=== PATIENT | female | born 1940 | race African-American/Black ===

== ENCOUNTER 2017-12-08 17:33 | Inpatient (IN) ==
[2017-12-08] MEDS ORDERED: Sod Chloride 0.9% Inj 1,000 ML IV.SIG ONE ×2 (18:16)
[2017-12-08 18:48] LABS: Baso % (Auto) 0.2 % (0.0-2.0); Hematocrit 39.1 % (35.0-46.0); Hemoglobin 12.6 gm/dL (11.6-15.3); Lymph # (Auto) 0.8 th/mm3 (1.0-4.8); Lymph % (Auto) 5.6 % (9.0-44.0); Mean Corpuscular HGB Conc 32.3 % (32.0-36.0); Mean Corpuscular Hemoglobin 27.9 pg (27.0-34.0); Mean Corpuscular Volume 86.5 fL (80.0-100.0); Mean Platelet Volume 9.6 fL (7.0-11.0); Mono # (Auto) 1.4 th/mm3 (0.0-0.9); Mono % (Auto) 9.7 % (0.0-8.0); Neut # (Auto) 11.9 th/mm3 (1.8-7.7); Neut % (Auto) 84.5 % (16.0-70.0); Platelet Count 165 th/mm3 (150-450); Red Blood Count 4.52 mil/mm3 (4.00-5.30); White Blood Count 14.1 th/mm3 (4.0-11.0)
[2017-12-08] MEDS ORDERED: Acetaminophen 325 MG Tablet PO ONE (18:55)
--- NOTE | 2017-12-08 19:04 | XR ---
EXAM DATE: 12/08/2017 6:46 PM EDT AGE/SEX: 77 years / Female INDICATIONS: Shortness of breath. Fever. CLINICAL DATA: This is the patient's initial encounter. Patient reports that signs and symptoms have been present for 2 days and indicates a pain score of 0/10. MEDICAL/SURGICAL HISTORY: . Hepatitis C . Cholecystectomy. Cesarian section. Interstim COMPARISON: No prior exams available for comparison. FINDINGS: The lungs are clear without infiltrate, nodule, or mass. There is no appreciable pleural effusion fo r technique. Heart and mediastinum are unremarkable. CONCLUSION: No acute cardiopulmonary disease. Electronically signed by: Margarette Garcia MD 12/08/2017 7:02 PM EDT
--- NOTE | 2017-12-08 19:08 | ED ---
HPI General Chief Complaint: Medical Clearance Stated Complaint: blood sugar increasing per pt Time Seen by Provider: 12/08/17 18:43 Source: patient and RN notes reviewed Mode of arrival: ambulatory Limitations: no limitations History of Present Illness HPI Narrative: 77-year-old female presents to the emergency department for evaluation of hyperglycemia and fever. She states she has a chronic cough. However, she started with fever last night. She also reports sore throat, chest congestion, body aches. She states her blood sugar was up in the 400s. Fever on arrival was 102.5. She does report history type 2 diabetes and is on Lantus. Patient denies any urinary symptoms. Reports history of hepatitis C, cirrhosis, spinal stenosis. Moderate severity. MD complaint: fever Onset (ago): day(s) (1) Maximum Temperature: 102.5 F Temperature Source: oral Associated symptoms: chills, nasal congestion, sore throat and cough Related Data Home Medications Medication Instructions Recorded Confirmed insulin glargine [Lantus Solostar 60 unit SUB-Q HS 12/08/17 12/08/17 U-100 Insulin] Allergies Allergy/AdvReac Type Severity Reaction Status Date / Time cephalexin Allergy Severe HIVES Verified 12/08/17 18:37 Review of Systems ROS: all other systems reviewed are negative PMFSH Medical History Medical History Cirrhosis (Acute) Diabetes (Acute) Hepatitis C (Acute) Spinal stenosis (Acute) Surgical History Surgical History History of cholecystectomy (Acute) Hx of section (Acute) Social History Social History Substance History: No History of Abuse Smoking Status: Former smoker How Often Do You Have a Drink Containing Alcohol: Never Recent Travel in [facility] within the Last 8 Weeks: No Recent Out of Country Travel within the Last 8 Weeks: No Immunization History Tetanus Immunization: Unsure Exam Narrative Exam Narrative: GENERAL: Well-nourished, well-developed female patient, afebrile. SKIN: Focused skin assessment warm/dry. HEAD: Normocephalic. Atraumatic. EYES: No scleral icterus. No injection or drainage. NECK: Supple, trachea midline. No JVD or lymphadenopathy. CARDIOVASCULAR: Regular rate and rhythm without murmurs, gallops, or rubs. RESPIRATORY: Breath sounds equal bilaterally. No accessory muscle use. Lung sounds are clear to auscultation. GASTROINTESTINAL: Abdomen soft, non-tender, nondistended. MUSCULOSKELETAL: No cyanosis, or edema. BACK: Nontender without obvious deformity. No CVA tenderness. Course Initial Documented Vital Signs Temperature 102.5 F H 12/08/17 17:58 Pulse Rate 93 H 12/08/17 17:58 Respiratory Rate 18 12/08/17 17:58 Blood Pressure 131/62 12/08/17 17:58 Pulse Oximetry 95 12/08/17 17:58 Last Documented Vital Signs Temperature 98.5 F 12/08/17 20:23 Pulse Rate 86 12/08/17 20:23 Respiratory Rate 22 12/08/17 20:23 Blood Pressure 140/63 12/08/17 20:23 Pulse Oximetry 97 12/08/17 20:23 Medical Decision Making MDM Narrative Medical decision making narrative: 77-year-old female presents to the emergency department for evaluation of hyperglycemia and fever. Fever is 102.5 on arrival. IV access is obtained. CBC, CMP, magnesium, lactic acid, blood cultures 2, UA, beta hydroxybutyrate,, blood cultures 2, chest x-ray are ordered and pending. Patient is given 2 L normal saline IV bolus. CBC shows leukocytosis of 14.1. CMP shows hyponatremia 124, hyperkalemia 5.5, BUN 30, creatinine 1.66, hyperglycemia 397. Magnesium is 1.5. Lactic acid is 2.2. Beta hydroxybutyrate is 0.53. UA shows large occult blood, positive nitrate, moderate leukocyte esterase, 133 WBC, occasional WBC clumps. Chest x- ray shows no acute cardiopulmonary disease. Influenza is negative. Patient is given Levaquin 250 mg IV for UTI, sepsis. She also be admitted for hyponatremia. Dr. Salter accepted admission. Medical Screen Exam Complete: Yes Emergency Medical Condition: Yes Differential Diagnosis Differential Diagnosis: Pneumonia versus influenza versus UTI versus sepsis versus hyperglycemia versus DKA Medical Records Medical records reviewed: Yes I reviewed the patient's medical records. Lab Data Result diagrams: 12/08/17 18:32 12/08/17 18:32 Lab Results 12/08/17 12/08/17 12/08/17 Range/Units 18:32 18:32 18:32 WBC 14.1 H (4.0-11.0) th/mm3 RBC 4.52 (4.00-5.30) mil/mm3 Hgb 12.6 (11.6-15.3) gm/dL Hct 39.1 (35.0-46.0) % MCV 86.5 (80.0-100.0) fL MCH 27.9 (27.0-34.0) pg MCHC 32.3 (32.0-36.0) % RDW 13.0 (11.6-17.2) % Plt Count 165 (150-450) th/mm3 MPV 9.6 (7.0-11.0) fL Neut % (Auto) 84.5 H (16.0-70.0) % Lymph % (Auto) 5.6 L (9.0-44.0) % Pender % (Auto) 9.7 H (0.0-8.0) % Eos % (Auto) 0.0 (0.0-4.0) % Baso % (Auto) 0.2 (0.0-2.0) % Neut # (Auto) 11.9 H (1.8-7.7) th/mm3 Lymph # (Auto) 0.8 L (1.0-4.8) th/mm3 Pender # (Auto) 1.4 H (0.0-0.9) th/mm3 Eos # (Auto) 0.0 (0.0-0.4) th/mm3 Baso # (Auto) 0.0 (0.0-0.2) th/mm3 WBC Differential . Differential Comment Auto diff final Sodium 124 L* (136-145) meq/L Potassium 5.5 H (3.5-5.1) meq/L Chloride 92 L (98-107) meq/L Carbon Dioxide 23.7 (21.0-32.0) meq/L Anion Gap 8 (5-15) meq/L BUN 30 H (7-18) mg/dL Creatinine 1.66 H (0.50-1.00) mg/dL Estimated GFR 36 L (>89) mL/min POC Glucose (68-110) mg/dl Random Glucose 397 H (74-106) mg/dL Lactic Acid 2.2 H (0.4-2.0) mmol/L Calcium 9.3 (8.5-10.1) mg/dL Magnesium 1.5 (1.5-2.5) mg/dL Total Bilirubin 1.4 H (0.2-1.0) mg/dL AST 51 H (15-37) U/L ALT 19 (10-53) U/L Alkaline Phosphatase 127 H (45-117) U/L Total Protein 9.1 H (6.4-8.2) g/dL Albumin 3.3 L (3.4-5.0) g/dL Beta-Hydroxybutyric Acd 0.53 H (0.00-0.39) mmol/L Urine Color (Yellw/Straw) Urine Clarity (Clear) Urine pH (5.0-8.5) Ur Specific [place] (1.002-1.035) Urine Protein (Neg-Trace) mg/dL Urine Glucose (UA) (Negative) mg/dL Urine Ketones (Negative) mg/dL Urine Occult Blood (Negative) Urine Nitrate (Negative) Urine Bilirubin (Negative) Urine Urobilinogen (Less than 2) mg/dL Ur Leukocyte Esterase (Negative) Urine RBC (0-3) /hpf Urine WBC (0-5) /hpf Urine WBC Clumps (None) Ur Squamous Epith Cells (0-5) /hpf Urine Bacteria (None) /hpf Urine Mucus (Occasional) /lpf Micro UA Comment Ur Microscopic Review Urine Culture Comments 12/08/17 12/08/17 Range/Units 19:22 20:23 WBC (4.0-11.0) th/mm3 RBC (4.00-5.30) mil/mm3 Hgb (11.6-15.3) gm/dL Hct (35.0-46.0) % MCV (80.0-100.0) fL MCH (27.0-34.0) pg MCHC (32.0-36.0) % RDW (11.6-17.2) % Plt Count (150-450) th/mm3 MPV (7.0-11.0) fL Neut % (Auto) (16.0-70.0) % Lymph % (Auto) (9.0-44.0) % Pender % (Auto) (0.0-8.0) % Eos % (Auto) (0.0-4.0) % Baso % (Auto) (0.0-2.0) % Neut # (Auto) (1.8-7.7) th/mm3 Lymph # (Auto) (1.0-4.8) th/mm3 Pender # (Auto) (0.0-0.9) th/mm3 Eos # (Auto) (0.0-0.4) th/mm3 Baso # (Auto) (0.0-0.2) th/mm3 WBC Differential Differential Comment Sodium (136-145) meq/L Potassium (3.5-5.1) meq/L Chloride (98-107) meq/L Carbon Dioxide (21.0-32.0) meq/L Anion Gap (5-15) meq/L BUN (7-18) mg/dL Creatinine (0.50-1.00) mg/dL Estimated GFR (>89) mL/min POC Glucose 325 H (68-110) mg/dl Random Glucose (74-106) mg/dL Lactic Acid (0.4-2.0) mmol/L Calcium (8.5-10.1) mg/dL Magnesium (1.5-2.5) mg/dL Total Bilirubin (0.2-1.0) mg/dL AST (15-37) U/L ALT (10-53) U/L Alkaline Phosphatase (45-117) U/L Total Protein (6.4-8.2) g/dL Albumin (3.4-5.0) g/dL Beta-Hydroxybutyric Acd (0.00-0.39) mmol/L Urine Color Yellow (Yellw/Straw) Urine Clarity Cloudy H (Clear) Urine pH 5.0 (5.0-8.5) Ur Specific [place] 1.014 (1.002-1.035) Urine Protein 100 H (Neg-Trace) mg/dL Urine Glucose (UA) 500 or greater (Negative) mg/dL Urine Ketones Negative (Negative) mg/dL Urine Occult Blood Large H (Negative) Urine Nitrate Positive H (Negative) Urine Bilirubin Negative (Negative) Urine Urobilinogen Less than 2 (Less than 2) mg/dL Ur Leukocyte Esterase Moderate H (Negative) Urine RBC 20 H (0-3) /hpf Urine WBC 133 H (0-5) /hpf Urine WBC Clumps Occasional H (None) Ur Squamous Epith Cells <1 (0-5) /hpf Urine Bacteria Moderate H (None) /hpf Urine Mucus Few H (Occasional) /lpf Micro UA Comment Culture indicated Ur Microscopic Review Not Reportable Urine Culture Comments Culture indicated Imaging Data Radiologist's impression: Chest X-Ray 12/08/17 18:16 CONCLUSION: No acute cardiopulmonary disease. Discharge Plan Discharge Disposition Patient Disposition: 30 Still Patient Discharge Details Diagnosis: Acute UTI, Sepsis, Acute hyponatremia Physicians Team ED Provider: Dandy Leon ED Midlevel Provider: Fawn Davalos Primary Care Provider: Brenna Severino Attending Provider: Karen Salter Status ED Status: Admitted Patient
[2017-12-08 19:15] LABS: Alanine Aminotransferase 19 U/L (10-53); Albumin 3.3 g/dL (3.4-5.0); Alkaline Phosphatase 127 U/L (45-117); Anion Gap 8 meq/L (5-15); Aspartate Aminotransferase 51 U/L (15-37); Beta Hydroxybutyric Acid 0.53 mmol/L (0.00-0.39); Blood Urea Nitrogen 30 mg/dL (7-18); Calcium 9.3 mg/dL (8.5-10.1); Carbon Dioxide 23.7 meq/L (21.0-32.0); Chloride 92 meq/L (98-107); Glomerular Filtration Rate 36 mL/min (>89); Glucose,Random 397 mg/dL (74-106); Magnesium 1.5 mg/dL (1.5-2.5); Total Protein 9.1 g/dL (6.4-8.2)
[2017-12-08 19:16] LABS: Potassium 5.5 meq/L (3.5-5.1)
[2017-12-08 19:17] LABS: Sodium 124 meq/L (136-145)
[2017-12-08 19:46] LABS: Bacteria,Urine Moderate /hpf; Bilirubin,Urine Negative (Negative); Clarity,Urine Cloudy (Clear); Color,Urine Yellow (Yellw/Straw); Glucose,Urine (UA) 500 or Greater mg/dL (Negative); Leukocyte Esterase,Urine Moderate (Negative); Mucus,Urine Few /lpf (Occasional); Nitrite,Urine Positive (Negative); Specific Gravity,Urine 1.014 (1.002-1.035); Squamous Epithelial Cell,Urine <1 /hpf (0-5)
[2017-12-08] MEDS ORDERED: Levofloxacin 250 mg Premix Inj 250 MG/50 ML PIGGYBACK IV.SIG ONE (20:24)
[2017-12-08] MEDS ORDERED: Bisacodyl 10 MG Supp RECTAL PRN (20:54)
[2017-12-08] MEDS ORDERED: Dextrose 50% in Water 50 ML Vial IV.PUSH PRN (20:54)
--- NOTE | 2017-12-08 20:56 | P.HPIM ---
History of Present Illness Primary Care Physician: Brenna Severino MD History of Present Illness: This is a 77-year-old female with a PMH of HTN, Hepatitis C, Cirrhosis and DM who presented to ER with complaints of fever and elevated BS x1 day. States she 's had non-productive cough, nasal congestion and sore throat since yesterday, last night w/ fever of 102. Denies chest pain, SOB or sick contacts. Notes BS have been 400s despite taking Insulin. On arrival, BP 131/62, HR 93, O2 sat 95 % on RA, Temp 102.5. WBC 14.1. Na 124. K+ 5.5. Creatinine 1.66, previously 1.07 on 04/03/2008. Lactic Acid 2.2. BS 397. UA positive for significant UTI. CXR with no acute findings. S/p Blood Cultures, IVF and Levaquin IV in ER - Diagnosis (1) Sepsis (2) UTI (urinary tract infection) (3) DELFINO (acute kidney injury) (4) DM (diabetes mellitus) (5) Hepatitis C Inpatient Certification: I certify that the inpatient services were ordered in accordance with Medicare regulations governing the order. This includes certification that hospital inpatient services are reasonable and necessary and in the case of services not specified as inpatient-only under 42 CFR 419.22(n), that they are appropriately provided as inpatient services in accordance to with the 2-midnight benchmark under 43 CFR 412.3(e) Estimated Total Length of Stay (Days): 2 Plans for Post Hospital Care: Not yet determined Review of Systems PAST FAMILY HISTORY: Reviewed, positive for DM. All other systems reviewed negative except as stated in H[facility] - History History Provided By: Patient - Medical History Medical History: Medical History (Last Updated 12/08/17 @ 18:16 by Litzy Sanchez RN) Cirrhosis Diabetes Hepatitis C Spinal stenosis - Surgical History Surgical History: Surgical History (Last Updated 12/08/17 @ 18:16 by Litzy Sanchez RN) History of cholecystectomy Hx of section - Tobacco History Smoking Status: Former smoker - Alcohol History How Often Do You Have a Drink Containing Alcohol: Never - Substance Use History Substance History: No History of Abuse - Travel History Recent Travel in the [place] Within the Last 8 Weeks: No Recent Travel Out of the Country Within the Last 8 Weeks: No - Immunization History Tetanus Immunization: Unsure Medications and Allergies Active Medications: Active Medications Levofloxacin/Dextrose (Levaquin 250 Mg Premix Inj) 250 mg in 50 mls @ 50 mls/ hr IV.SIG ONCE ONE Stop: 12/08/17 21:23 Last Admin: 12/08/17 20:38 Dose: 50 mls/hr Sodium Chloride (Ns Flush) 2 ml IV.FLUSH PRN PRN PRN Reason: FLUSH AFTER USING IV ACCESS Last Admin: 12/08/17 18:34 Dose: 2 ml Allergies Allergy/AdvReac Type Severity Reaction Status Date / Time cephalexin Allergy Severe HIVES Verified 12/08/17 18:37 Home Medications Medication Instructions Recorded Confirmed Type insulin glargine [Lantus Solostar 60 unit SUB-Q HS 12/08/17 12/08/17 History U-100 Insulin] Exam Vital signs: Vital Signs 12/08/17 17:58 12/08/17 19:11 12/08/17 19:12 Temperature 102.5 F H Pulse Rate 93 H 90 90 Respiratory Rate 18 22 Blood Pressure 131/62 175/76 H Pulse Oximetry 95 96 12/08/17 20:23 Temperature 98.5 F Pulse Rate 86 Respiratory Rate 22 Blood Pressure 140/63 Pulse Oximetry 97 Intake & Output 12/08/17 12/08/17 12/09/17 06:59 18:59 06:59 Intake Total 1999 Balance 1999 Weight 84.822 kg Intake: IV 1999 NS Inj 1,000 ML @ Wide Open IV. 1999 SIG BOLUS ONE Rx#:[id number] Narrative: PE: GENERAL: Pleasant elderly black female in no acute distress. SKIN: Focused skin assessment warm and dry. HEENT: PERRLA, EOMI. No scleral icterus or conjunctival pallor. No lid lag or facial droop. CARDIOVASCULAR: Regular rate and rhythm. No obvious murmurs to auscultation. No chest tenderness to palpation. RESPIRATORY: No obvious rhonchi or wheezing. Clear to auscultation. Breath sounds equal bilaterally. GASTROINTESTINAL: Abdomen soft, non-tender, nondistended. BS normal. MUSCULOSKELETAL: Extremities without clubbing, cyanosis, or edema. No obvious deformities. NEUROLOGICAL: Awake, alert and oriented x4. No focal neurologic deficits. Moving both upper and lower extremities spontaneously. PSYCHIATRIC: Appropriate mood and affect. Insight and judgment normal. Results - Labs CBC & Chem 7: 12/08/17 18:32 12/08/17 18:32 Labs: Short CBC 12/08/17 Range/Units 18:32 WBC 14.1 H (4.0-11.0) th/mm3 Hgb 12.6 (11.6-15.3) gm/dL Hct 39.1 (35.0-46.0) % Plt Count 165 (150-450) th/mm3 BMP 12/08/17 18:32 Sodium 124 L* Potassium 5.5 H Chloride 92 L Carbon Dioxide 23.7 BUN 30 H Creatinine 1.66 H Calcium 9.3 Liver Function 12/08/17 Range/Units 18:32 Total Bilirubin 1.4 H (0.2-1.0) mg/dL AST 51 H (15-37) U/L ALT 19 (10-53) U/L Alkaline Phosphatase 127 H (45-117) U/L Albumin 3.3 L (3.4-5.0) g/dL Urine 12/08/17 Range/Units 19:22 Urine Color Yellow (Yellw/Straw) Urine Clarity Cloudy H (Clear) Urine pH 5.0 (5.0-8.5) Ur Specific [place] 1.014 (1.002-1.035) Urine Protein 100 H (Neg-Trace) mg/dL Urine Glucose (UA) 500 or greater (Negative) mg/dL - Imaging Impressions Chest X-Ray 12/08/17 18:16 CONCLUSION: No acute cardiopulmonary disease. Caprini VTE Risk Assessment Caprini VTE Risk Assessment: No/Low Risk (score <= 1) Caprini Risk Assessment Model: Point Value = 1 Point Value = 2 Point Value = 3 Point Value = 5 Age 41-60 Minor surgery BMI > 25 kg/m2 Swollen legs Varicose veins or History of unexplained or recurrent spontaneous Oral contraceptives or hormone replacement Sepsis (< 1 month) Serious lung disease, including pneumonia (< 1 month) Abnormal pulmonary function Acute myocardial infarction Congestive heart failure (< 1 month) History of inflammatory bowel disease Medical patient at bed rest Age 61-74 Arthroscopic surgery Major open surgery (> 45 min) Laparoscopic surgery (> 45 min) Malignancy Confined to bed (> 72 hours) Immobilizing plaster cast Central venous access Age >= 75 History of VTE Family history of VTE Factor V Leiden Prothrombin [id number] Lupus anticoagulant Anticardiolipin antibodies Elevated serum homocysteine Heparin-induced thrombocytopenia Other congenital or acquired thrombophilia Stroke (< 1 month) Elective arthroplasty Hip, pelvis, or leg fracture Acute spinal cord injury (< 1 month) Prophylaxis Regimen: Total Risk Factor Score Risk Level Prophylaxis Regimen 0-1 Low Early ambulation 2 Moderate Order ONE of the following: *Sequential Compression Device (SCD) *Heparin 5000 units SQ BID 3-4 Higher Order ONE of the following medications: *Heparin 5000 units SQ TID *Enoxaparin/Lovenox 40 mg SQ daily (WT < 150 kg, CrCl > 30 mL/min) *Enoxaparin/Lovenox 30 mg SQ daily (WT < 150 kg, CrCl > 10-29 mL/min) *Enoxaparin/Lovenox 30 mg SQ BID (WT < 150 kg, CrCl > 30 mL/min) AND/OR *Sequential Compression Device (SCD) 5 or more Highest Order ONE of the following medications: *Heparin 5000 units SQ TID (Preferred with Epidurals) *Enoxaparin/Lovenox 40 mg SQ daily (WT < 150 kg, CrCl > 30 mL/min) *Enoxaparin/Lovenox 30 mg SQ daily (WT < 150 kg, CrCl > 10-29 mL/min) *Enoxaparin/Lovenox 30 mg SQ BID (WT < 150 kg, CrCl > 30 mL/min) AND *Sequential Compression Device (SCD) Assessment and Plan - Assessment (1) Sepsis Code(s): A41.9 - Sepsis, unspecified organism Status: Acute (2) UTI (urinary tract infection) Code(s): N39.0 - Urinary tract infection, site not specified Status: Acute (3) DELFINO (acute kidney injury) Code(s): N17.9 - Acute kidney failure, unspecified Status: Acute (4) DM (diabetes mellitus) Code(s): E11.9 - Type 2 diabetes mellitus without complications Status: Acute (5) Hepatitis C Code(s): B19.20 - Unspecified viral hepatitis C without hepatic coma Status: Acute - Plan A/P: 1. Sepsis: Temp 102.5, HR 93, WBC 14, Source-UTI, s/p Blood Cultures and IV Levaquin, follow up cultures, continue IVF for hydration, repeat Lactic Acid. 2. UTI: U/a w/ significant UTI, follow up urine cultures, continue IV Levaquin , IVF for hydration, monitor I/O. 3. DELFINO: Creatinine 1.66, previously 1.07 on 04/03/08, IVF as above-caution w/ h /o Cirrhosis, monitor I/O, repeat labs in am. 4. DM: Uncontrolled, likely related to acute infection/sepsis. BS 397 on arrival, sliding scale w/ Accu-Cheks, on Lantus 60u qhs at home 5. Hepatitis C: h/o Hep C/Cirrhosis, LFTs at baseline in comparison to labs from 04/03/08, monitor I/O. 6. DVT Prophylaxis: SCD/Teds 7. Social work for d/c planning as needed 8. Case discussed w/ ER physician at length, labs/records/imaging reviewed by me. (1) Sepsis Qualifiers: Sepsis type: sepsis due to unspecified organism Qualified Code(s): A41.9 - Sepsis, unspecified organism
[2017-12-08] MEDS: Insulin NovoLOG Aspart Correctional Sugar Inj SQ SCH (23:35)
[2017-12-08] MEDS: Senna/Docusate Sodium 8.6/50 MG Tablet PO SCH (23:53)
[2017-12-08] MEDS: Sod Chloride 0.9% Inj 1,000 ML IV.CONT SCH (23:53)
[2017-12-09] MEDS: Acetaminophen 325 MG Tablet PO PRN ×2 (01:38→17:58)
[2017-12-09] MEDS: Senna/Docusate Sodium 8.6/50 MG Tablet PO SCH ×2 (09:37→21:45)
[2017-12-09] MEDS: Insulin NovoLOG Aspart Correctional Sugar Inj SQ SCH ×4 (09:38→21:44)
[2017-12-09 09:41] LABS: Baso % (Auto) 0.2 % (0.0-2.0); Hematocrit 33.8 % (35.0-46.0); Hemoglobin 11.1 gm/dL (11.6-15.3); Lymph # (Auto) 0.9 th/mm3 (1.0-4.8); Lymph % (Auto) 5.9 % (9.0-44.0); Mean Corpuscular HGB Conc 32.7 % (32.0-36.0); Mean Corpuscular Hemoglobin 28.1 pg (27.0-34.0); Mean Corpuscular Volume 85.9 fL (80.0-100.0); Mean Platelet Volume 9.8 fL (7.0-11.0); Mono # (Auto) 1.7 th/mm3 (0.0-0.9); Mono % (Auto) 10.8 % (0.0-8.0); Neut # (Auto) 12.9 th/mm3 (1.8-7.7); Neut % (Auto) 83.1 % (16.0-70.0); Platelet Count 134 th/mm3 (150-450); Red Blood Count 3.94 mil/mm3 (4.00-5.30); Red Cell Distribution Width 13.1 % (11.6-17.2); White Blood Count 15.6 th/mm3 (4.0-11.0)
[2017-12-09 10:20] LABS: Alanine Aminotransferase 14 U/L (10-53); Albumin 2.5 g/dL (3.4-5.0); Alkaline Phosphatase 105 U/L (45-117); Anion Gap 7 meq/L (5-15); Aspartate Aminotransferase 26 U/L (15-37); Blood Urea Nitrogen 25 mg/dL (7-18); Calcium 8.5 mg/dL (8.5-10.1); Carbon Dioxide 22.9 meq/L (21.0-32.0); Chloride 102 meq/L (98-107); Glomerular Filtration Rate 48 mL/min (>89); Glucose,Random 297 mg/dL (74-106); Potassium 4.5 meq/L (3.5-5.1); Sodium 132 meq/L (136-145); Total Protein 7.5 g/dL (6.4-8.2)
--- NOTE | 2017-12-09 11:34 | ECG ---
Date Performed: 12/08/2017 Time Performed: 19:08:47 PTAGE: 77 years EKG: Sinus rhythm BORDERLINE LEFT AXIS DEVIATION INCOMPLETE RIGHT BUNDLE BRANCH BLOCK BORDERLINE ECG Since the PREVIOUS TRACING , no significant change noted PREVIOUS TRACIN04/07/2009 18.21 DOCTOR: David Cervantes Interpretating Date/Time 12/09/2017 11:33:35
--- NOTE | 2017-12-09 13:47 | P.PNIM ---
Subjective Interval history: The patient was sitting up in a chair. She said that she felt okay. She said she is able to take penicillin. She says she has had problems with low sodium levels before. She worked with physical therapy. Discussed with nursing. Physical Exam Vital signs: Vital Signs 12/08/17 17:58 12/08/17 19:11 12/08/17 19:12 Temperature 102.5 F H Pulse Rate 93 H 90 90 Respiratory Rate 18 22 Blood Pressure 131/62 175/76 H Pulse Oximetry 95 96 12/08/17 20:23 12/08/17 22:08 12/08/17 22:09 Temperature 98.5 F Pulse Rate 86 77 78 Respiratory Rate 22 20 Blood Pressure 140/63 113/54 L Pulse Oximetry 97 98 12/08/17 22:53 12/09/17 00:00 12/09/17 01:40 Temperature 97.7 F 100.6 F H Pulse Rate 81 101 H 102 H Respiratory Rate 18 18 Blood Pressure 129/60 139/65 Pulse Oximetry 98 96 12/09/17 04:00 12/09/17 08:00 12/09/17 12:00 Temperature 99.9 F H 99.6 F 102.9 F H Pulse Rate 89 85 95 H Respiratory Rate 18 18 18 Blood Pressure 114/57 L 144/70 H 124/105 H Pulse Oximetry 99 97 97 Intake & Output 12/08/17 12/09/17 12/09/17 18:59 06:59 18:59 Intake Total 2290 / 2290 Output Total 800 / 800 Balance 2290 / 2290 -800 / -800 Weight 84.822 kg 84.3 kg Intake: IV 2049 Levaquin 250 mg Premix Inj 250 50 / 50 mg In 50 ml @ 50 mls/hr IV.SIG ONCE ONE Rx#:[id number] NS Inj 1,000 ML @ Wide Open IV. 1999 SIG BOLUS ONE Rx#:[id number] Oral 240 / 240 Output: Urine Amount (Catheter) 800 / 800 Female External 800 / 800 Other: Date of Last Bowel Movement 12/08/17 Weight On Admission 84.395 kg Narrative: GENERAL: Pleasant elderly female in no acute distress. SKIN: Focused skin assessment warm and dry. HEENT: PERRLA, EOMI. No scleral icterus or conjunctival pallor. No lid lag or facial droop. CARDIOVASCULAR: Tachycardic. No obvious murmurs to auscultation. No chest tenderness to palpation. RESPIRATORY: No obvious rhonchi or wheezing. Clear to auscultation. Breath sounds equal bilaterally. GASTROINTESTINAL: Abdomen soft, non-tender, nondistended. BS normal. MUSCULOSKELETAL: Extremities without clubbing, cyanosis, or edema. No obvious deformities. NEUROLOGICAL: Awake, alert and oriented x4. Resting tremor. Moving both upper and lower extremities spontaneously. PSYCHIATRIC: Appropriate mood and affect. Insight and judgment normal. - Urinary Catheter Management Female External Cath placed during this visit: no Results - Labs CBC & Chem 7: 12/09/17 09:07 12/09/17 09:07 Laboratory Results - last 24 hr 12/08/17 12/08/17 12/08/17 18:32 18:32 18:32 WBC 14.1 H RBC 4.52 Hgb 12.6 Hct 39.1 MCV 86.5 MCH 27.9 MCHC 32.3 RDW 13.0 Plt Count 165 MPV 9.6 Neut % (Auto) 84.5 H Lymph % (Auto) 5.6 L [place] % (Auto) 9.7 H Eos % (Auto) 0.0 Baso % (Auto) 0.2 Neut # (Auto) 11.9 H Lymph # (Auto) 0.8 L [place] # (Auto) 1.4 H Eos # (Auto) 0.0 Baso # (Auto) 0.0 WBC Differential . Differential Comment Auto diff final Sodium 124 L* Potassium 5.5 H Chloride 92 L Carbon Dioxide 23.7 Anion Gap 8 BUN 30 H Creatinine 1.66 H Estimated GFR 36 L POC Glucose Random Glucose 397 H Lactic Acid 2.2 H Calcium 9.3 Magnesium 1.5 Total Bilirubin 1.4 H AST 51 H ALT 19 Alkaline Phosphatase 127 H Total Protein 9.1 H Albumin 3.3 L Beta-Hydroxybutyric Acd 0.53 H Urine Color Urine Clarity Urine pH Ur Specific [place] Urine Protein Urine Glucose (UA) Urine Ketones Urine Occult Blood Urine Nitrate Urine Bilirubin Urine Urobilinogen Ur Leukocyte Esterase Urine RBC Urine WBC Urine WBC Clumps Ur Squamous Epith Cells Urine Bacteria Urine Mucus Micro UA Comment Ur Microscopic Review Urine Culture Comments 12/08/17 12/08/17 12/08/17 19:22 20:23 23:27 WBC RBC Hgb Hct MCV MCH MCHC RDW Plt Count MPV Neut % (Auto) Lymph % (Auto) [place] % (Auto) Eos % (Auto) Baso % (Auto) Neut # (Auto) Lymph # (Auto) [place] # (Auto) Eos # (Auto) Baso # (Auto) WBC Differential Differential Comment Sodium Potassium Chloride Carbon Dioxide Anion Gap BUN Creatinine Estimated GFR POC Glucose 325 H 339 H Random Glucose Lactic Acid Calcium Magnesium Total Bilirubin AST ALT Alkaline Phosphatase Total Protein Albumin Beta-Hydroxybutyric Acd Urine Color Yellow Urine Clarity Cloudy H Urine pH 5.0 Ur Specific [place] 1.014 Urine Protein 100 H Urine Glucose (UA) 500 or greater Urine Ketones Negative Urine Occult Blood Large H Urine Nitrate Positive H Urine Bilirubin Negative Urine Urobilinogen Less than 2 Ur Leukocyte Esterase Moderate H Urine RBC 20 H Urine WBC 133 H Urine WBC Clumps Occasional H Ur Squamous Epith Cells <1 Urine Bacteria Moderate H Urine Mucus Few H Micro UA Comment Culture indicated Ur Microscopic Review Not Reportable Urine Culture Comments Culture indicated 12/08/17 12/09/17 12/09/17 23:40 08:07 09:07 WBC 15.6 H RBC 3.94 L Hgb 11.1 L Hct 33.8 L MCV 85.9 MCH 28.1 MCHC 32.7 RDW 13.1 Plt Count 134 L MPV 9.8 Neut % (Auto) 83.1 H Lymph % (Auto) 5.9 L [place] % (Auto) 10.8 H Eos % (Auto) 0.0 Baso % (Auto) 0.2 Neut # (Auto) 12.9 H Lymph # (Auto) 0.9 L [place] # (Auto) 1.7 H Eos # (Auto) 0.0 Baso # (Auto) 0.0 WBC Differential . Differential Comment Auto diff final Sodium Potassium Chloride Carbon Dioxide Anion Gap BUN Creatinine Estimated GFR POC Glucose 260 H Random Glucose Lactic Acid 2.0 Calcium Magnesium Total Bilirubin AST ALT Alkaline Phosphatase Total Protein Albumin Beta-Hydroxybutyric Acd Urine Color Urine Clarity Urine pH Ur Specific [place] Urine Protein Urine Glucose (UA) Urine Ketones Urine Occult Blood Urine Nitrate Urine Bilirubin Urine Urobilinogen Ur Leukocyte Esterase Urine RBC Urine WBC Urine WBC Clumps Ur Squamous Epith Cells Urine Bacteria Urine Mucus Micro UA Comment Ur Microscopic Review Urine Culture Comments 12/09/17 12/09/17 09:07 12:09 WBC RBC Hgb Hct MCV MCH MCHC RDW Plt Count MPV Neut % (Auto) Lymph % (Auto) [place] % (Auto) Eos % (Auto) Baso % (Auto) Neut # (Auto) Lymph # (Auto) [place] # (Auto) Eos # (Auto) Baso # (Auto) WBC Differential Differential Comment Sodium 132 L Potassium 4.5 D Chloride 102 D Carbon Dioxide 22.9 Anion Gap 7 BUN 25 H Creatinine 1.30 H Estimated GFR 48 L POC Glucose 279 H Random Glucose 297 H D Lactic Acid Calcium 8.5 D Magnesium Total Bilirubin 1.0 AST 26 ALT 14 Alkaline Phosphatase 105 Total Protein 7.5 D Albumin 2.5 L D Beta-Hydroxybutyric Acd Urine Color Urine Clarity Urine pH Ur Specific [place] Urine Protein Urine Glucose (UA) Urine Ketones Urine Occult Blood Urine Nitrate Urine Bilirubin Urine Urobilinogen Ur Leukocyte Esterase Urine RBC Urine WBC Urine WBC Clumps Ur Squamous Epith Cells Urine Bacteria Urine Mucus Micro UA Comment Ur Microscopic Review Urine Culture Comments Microbiology 12/08/17 19:25 Blood - Peripheral Aerobic Blood Culture - Preliminary gram negative rods 12/08/17 19:25 Blood - Peripheral Anaerobic Blood Culture - Preliminary gram negative rods 12/08/17 19:20 Blood - Peripheral Aerobic Blood Culture - Preliminary gram negative rods 12/08/17 19:20 Blood - Peripheral Anaerobic Blood Culture - Preliminary gram negative rods 12/08/17 19:24 Nasal Wash Influenza Types A,B Antigen - Final Negative for FLU A and B antigen Infection due to influenza A or B cannot be ruled out since the antigen present in the sample may be below the detection limit of the test. - Imaging Impressions Chest X-Ray 12/08/17 18:16 CONCLUSION: No acute cardiopulmonary disease. Assessment and Plan - Assessment (1) Sepsis Code(s): A41.9 - Sepsis, unspecified organism Status: Acute (2) UTI (urinary tract infection) Code(s): N39.0 - Urinary tract infection, site not specified Status: Acute (3) DELFINO (acute kidney injury) Code(s): N17.9 - Acute kidney failure, unspecified Status: Acute (4) DM (diabetes mellitus) Code(s): E11.9 - Type 2 diabetes mellitus without complications Status: Acute (5) Hepatitis C Code(s): B19.20 - Unspecified viral hepatitis C without hepatic coma Status: Acute - Plan Sepsis Temp 102.5, HR 93, WBC 14, Source-UTI. Blood cultures positive for gram positive rods. S/p IVFs. -follow blood cultures and urine culture. -switch IV Levaquin to IV Zosyn. DELFINO/ Hyponatremia Creatinine 1.66, previously 1.07 on 04/03. S/p IVFs. Sodium level went from 124 to 132. -d/c IVFs and repeat BMP. D5W if needed. -avoid nephrotoxins. DM Uncontrolled, likely related to acute infection/sepsis. BS 397 on arrival. -sliding scale w/ Accu-Cheks. -on Lantus 60u qhs at home. Will start Levemir 10 units HS and adjust as needed. Hepatitis C H/o Hep C/Cirrhosis, LFTs at baseline in comparison to labs from 04/03/08. Recently started on Harvoni. -outpt follow-up. DVT Prophylaxis: SCD/Teds (1) Sepsis Qualifiers: Sepsis type: sepsis due to unspecified organism Qualified Code(s): A41.9 - Sepsis, unspecified organism
[2017-12-09 15:35] LABS: Calcium 8.6 mg/dL (8.5-10.1); Carbon Dioxide 22.9 meq/L (21.0-32.0); Potassium 4.5 meq/L (3.5-5.1)
[2017-12-09] MEDS: Piperacil/Tazo 4.5 GM Premix 4.5 GM/100 ML BAG IV.SIG SCH ×2 (17:57→21:43)
[2017-12-09] MEDS: Sod Chloride 0.9% Inj 1,000 ML IV.CONT SCH (20:52)
[2017-12-09] MEDS ORDERED: Insulin Detemir Inj 1,000 UNIT/10 ML Vial SQ SCH (21:00)
[2017-12-10] MEDS: Piperacil/Tazo 4.5 GM Premix 4.5 GM/100 ML BAG IV.SIG SCH ×4 (03:41→21:22)
[2017-12-10] MEDS: Acetaminophen 325 MG Tablet PO PRN ×2 (03:46→21:20)
[2017-12-10 05:41] LABS: Hematocrit 33.4 % (35.0-46.0); Hemoglobin 10.8 gm/dL (11.6-15.3); Mean Corpuscular HGB Conc 32.3 % (32.0-36.0); Mean Corpuscular Hemoglobin 27.9 pg (27.0-34.0); Mean Corpuscular Volume 86.5 fL (80.0-100.0); Mean Platelet Volume 9.9 fL (7.0-11.0); Platelet Count 117 th/mm3 (150-450); Red Blood Count 3.86 mil/mm3 (4.00-5.30); Red Cell Distribution Width 12.9 % (11.6-17.2); White Blood Count 11.2 th/mm3 (4.0-11.0)
[2017-12-10 06:10] LABS: Albumin 2.4 g/dL (3.4-5.0); Calcium 8.6 mg/dL (8.5-10.1); Carbon Dioxide 22.4 meq/L (21.0-32.0); Magnesium 1.4 mg/dL (1.5-2.5)
[2017-12-10 06:12] LABS: Phosphorus 1.3 mg/dL (2.5-4.9)
[2017-12-10 06:14] LABS: Total Protein 7.3 g/dL (6.4-8.2)
[2017-12-10 07:29] LABS: Lymphocytes 7 % (9-44); Monocytes 9 % (0-8)
[2017-12-10] MEDS: Insulin NovoLOG Aspart Correctional Sugar Inj SQ SCH ×4 (09:59→20:57)
[2017-12-10] MEDS: Insulin Detemir Inj 1,000 UNIT/10 ML Vial SQ SCH ×2 (09:59→20:57)
[2017-12-10] MEDS ORDERED: Sodium Phosphate Inj 30 MMOL in Sodium Chlor 0.9% Inj 250 ML IV.SIG ONE (10:00)
[2017-12-10] MEDS ORDERED: Magnesium Sulfate Inj 2 GM in Sodium Chlor 0.9% Inj 96 ML IV.SIG ONE (10:00)
--- NOTE | 2017-12-10 11:26 | P.PNIM ---
Subjective Interval history: The patient said that she felt a lot better. She was wondering about her Harvoni and other medications. She wanted to know if she needed a GI consult. Discussed with nursing. Physical Exam Vital signs: Vital Signs 12/09/17 12:00 12/09/17 16:00 12/09/17 19:20 Temperature 102.9 F H 101.7 F H Pulse Rate 100 H 94 H Respiratory Rate 18 18 4 L Blood Pressure 124/105 H 189/85 H Pulse Oximetry 97 97 12/09/17 20:00 12/10/17 00:00 12/10/17 04:00 Temperature 97.6 F 99.2 F 98.9 F Pulse Rate 90 95 H 100 H Respiratory Rate 16 16 16 Blood Pressure 127/65 159/76 H 176/76 H Pulse Oximetry 94 L 94 L 95 12/10/17 05:32 12/10/17 06:57 12/10/17 08:00 Temperature 99 F 98 F Pulse Rate 92 H 98 H 83 Respiratory Rate 20 Blood Pressure 142/79 H 164/75 H Pulse Oximetry 98 12/10/17 10:45 Temperature Pulse Rate Respiratory Rate Blood Pressure Pulse Oximetry 98 Intake & Output 12/09/17 12/10/17 12/10/17 18:59 06:59 18:59 Intake Total 1100 / 1100 200 / 200 Output Total 800 / 800 Balance 300 / 300 200 / 200 Intake: IV 1100 / 1100 200 / 200 NS Inj 1,000 ML @ 100 mls/hr IV 1000 / 1000 .CONT .Q10H [facility] Rx#:[id number] Zosyn 4.5 GM Premix 4.5 gm In 100 / 100 200 / 200 100 ml @ 200 mls/hr IV.SIG Q6H [facility] Rx#:[id number] Output: Urine Amount (Catheter) 800 / 800 Female External 800 / 800 Other: Date of Last Bowel Movement 12/08/17 12/08/17 12/10/17 Narrative: GENERAL: Pleasant elderly female in no acute distress. SKIN: Focused skin assessment warm and dry. HEENT: PERRLA, EOMI. No scleral icterus or conjunctival pallor. No lid lag or facial droop. CARDIOVASCULAR: Tachycardic. No obvious murmurs to auscultation. No chest tenderness to palpation. RESPIRATORY: No obvious rhonchi or wheezing. Clear to auscultation. Breath sounds equal bilaterally. GASTROINTESTINAL: Abdomen soft, non-tender, nondistended. BS normal. MUSCULOSKELETAL: Extremities without clubbing, cyanosis, or edema. No obvious deformities. NEUROLOGICAL: Awake, alert and oriented x4. Resting tremor. Moving both upper and lower extremities spontaneously. PSYCHIATRIC: Appropriate mood and affect. Insight and judgment normal. - Urinary Catheter Management Female External Cath placed during this visit: no Results - Labs CBC & Chem 7: 12/10/17 04:42 12/10/17 04:42 Laboratory Results - last 24 hr 12/08/17 12/09/17 12/09/17 19:22 12:09 15:02 WBC RBC Hgb Hct MCV MCH MCHC RDW Plt Count MPV Prelim Diff (Auto) WBC Differential Seg Neuts % (Manual) Band Neuts % (Manual) Lymphocytes % (Manual) Monocytes % (Manual) Basophils % (Manual) Abs Neuts (Manual) Differential Comment Platelet Estimate Platelet Morphology Sodium 129 L Potassium 4.5 Chloride 97 L Carbon Dioxide 22.9 Anion Gap 9 BUN 26 H Creatinine 1.47 H Estimated GFR 42 L POC Glucose 279 H Random Glucose 351 H Calcium 8.6 Phosphorus Magnesium Total Bilirubin Direct Bilirubin Indirect Bilirubin AST ALT Alkaline Phosphatase Total Protein Albumin Urine Color Yellow Urine Clarity Cloudy H Urine pH 5.0 Ur Specific [place] 1.014 Urine Protein 100 H Urine Glucose (UA) 500 or greater Urine Ketones Negative Urine Occult Blood Large H Urine Nitrate Positive H Urine Bilirubin Negative Urine Urobilinogen Less than 2 Ur Leukocyte Esterase Moderate H Urine RBC 20 H Urine WBC 133 H Urine WBC Clumps Occasional H Ur Squamous Epith Cells <1 Urine Bacteria Moderate H Urine Mucus Few H Micro UA Comment Culture indicated Urine Culture Comments Culture indicated 12/09/17 12/09/17 12/10/17 17:31 20:48 03:45 WBC RBC Hgb Hct MCV MCH MCHC RDW Plt Count MPV Prelim Diff (Auto) WBC Differential Seg Neuts % (Manual) Band Neuts % (Manual) Lymphocytes % (Manual) Monocytes % (Manual) Basophils % (Manual) Abs Neuts (Manual) Differential Comment Platelet Estimate Platelet Morphology Sodium Potassium Chloride Carbon Dioxide Anion Gap BUN Creatinine Estimated GFR POC Glucose 345 H 388 H 325 H Random Glucose Calcium Phosphorus Magnesium Total Bilirubin Direct Bilirubin Indirect Bilirubin AST ALT Alkaline Phosphatase Total Protein Albumin Urine Color Urine Clarity Urine pH Ur Specific [place] Urine Protein Urine Glucose (UA) Urine Ketones Urine Occult Blood Urine Nitrate Urine Bilirubin Urine Urobilinogen Ur Leukocyte Esterase Urine RBC Urine WBC Urine WBC Clumps Ur Squamous Epith Cells Urine Bacteria Urine Mucus Micro UA Comment Urine Culture Comments 12/10/17 12/10/17 12/10/17 04:42 04:42 08:15 WBC 11.2 H RBC 3.86 L Hgb 10.8 L Hct 33.4 L MCV 86.5 MCH 27.9 MCHC 32.3 RDW 12.9 Plt Count 117 L MPV 9.9 Prelim Diff (Auto) Manual diff required WBC Differential Manual diff final Seg Neuts % (Manual) 75 H Band Neuts % (Manual) 8 H Lymphocytes % (Manual) 7 L Monocytes % (Manual) 9 H Basophils % (Manual) 1 Abs Neuts (Manual) 9.3 H Differential Comment . Platelet Estimate Low L Platelet Morphology Enlarged H Sodium 130 L Potassium 4.0 Chloride 98 Carbon Dioxide 22.4 Anion Gap 10 BUN 26 H Creatinine 1.42 H Estimated GFR 43 L POC Glucose 308 H Random Glucose 321 H Calcium 8.6 Phosphorus 1.3 L Magnesium 1.4 L Total Bilirubin 1.0 Direct Bilirubin 0.6 H Indirect Bilirubin 0.4 AST 25 ALT 14 Alkaline Phosphatase 96 Total Protein 7.3 Albumin 2.4 L Urine Color Urine Clarity Urine pH Ur Specific [place] Urine Protein Urine Glucose (UA) Urine Ketones Urine Occult Blood Urine Nitrate Urine Bilirubin Urine Urobilinogen Ur Leukocyte Esterase Urine RBC Urine WBC Urine WBC Clumps Ur Squamous Epith Cells Urine Bacteria Urine Mucus Micro UA Comment Urine Culture Comments Microbiology 12/08/17 19:22 Clean Catch Urine Urine Culture - Final Escherichia coli 12/08/17 19:25 Blood - Peripheral Aerobic Blood Culture - Preliminary gram negative rods 12/08/17 19:25 Blood - Peripheral Anaerobic Blood Culture - Preliminary gram negative rods 12/08/17 19:20 Blood - Peripheral Aerobic Blood Culture - Preliminary gram negative rods 12/08/17 19:20 Blood - Peripheral Anaerobic Blood Culture - Preliminary gram negative rods Assessment and Plan - Assessment (1) Sepsis Code(s): A41.9 - Sepsis, unspecified organism Status: Acute (2) UTI (urinary tract infection) Code(s): N39.0 - Urinary tract infection, site not specified Status: Acute (3) DELFINO (acute kidney injury) Code(s): N17.9 - Acute kidney failure, unspecified Status: Acute (4) DM (diabetes mellitus) Code(s): E11.9 - Type 2 diabetes mellitus without complications Status: Acute (5) Hepatitis C Code(s): B19.20 - Unspecified viral hepatitis C without hepatic coma Status: Acute - Plan Sepsis Temp 102.5, HR 93, WBC 14, Source-UTI. Blood cultures positive for gram positive rods. Urine culture growing E. coli. S/p IVFs. -follow repeat blood cultures. -Continue IV Zosyn. -Infectious disease consult pending. DELFINO/ Hyponatremia Creatinine 1.66, previously 1.07 on 04/03. S/p IVFs. Sodium level improved. -avoid nephrotoxins and follow BMP. DM Uncontrolled, likely related to acute infection/sepsis. BS 397 on arrival. -sliding scale w/ Accu-Cheks. -on Lantus 60u qhs at home. Will start Levemir 10 units twice daily and adjust as needed. Hepatitis C H/o Hep C/ Cirrhosis, LFTs at baseline in comparison to labs from 04/03/08. Recently started on Harvoni. -outpt follow-up. -Continue home Harvoni. DVT Prophylaxis: SCD/Teds Discharge Planning: Home health once cleared by ID and electrolytes are stable (1) Sepsis Qualifiers: Sepsis type: sepsis due to unspecified organism Qualified Code(s): A41.9 - Sepsis, unspecified organism
[2017-12-10] MEDS: Senna/Docusate Sodium 8.6/50 MG Tablet PO SCH ×2 (11:52→20:59)
[2017-12-10] MEDS: Atenolol 25 MG Tablet PO SCH (12:45)
--- NOTE | 2017-12-10 15:24 | MB ---
cc: Justo Guillaume MD DATE: 12/10/2017 REQUESTING PHYSICIAN: Donald Waters MD REASON FOR CONSULTATION: Sepsis. HISTORY OF PRESENT ILLNESS: This is a 77-year-old black female who presented to the emergency department with fever and chills. The patient noted that she fell 4 times before she was brought to the emergency department. She also noted body aches. In the emergency department, her temperature was 102.5 degrees. White count was elevated at 14.1. She also has renal insufficiency and hyponatremia. Urinalysis was taken and showed clumps of white cells and the urine culture has E. coli. Blood cultures have gram-negative rods in 4 bottles. The patient was started on antibiotics. This consultation is requested for infection management. Currently, she states she feels a little better. She still feels somewhat cold. Her temperature has improved today. She did have another temperature spike of 102.9 degrees yesterday afternoon. The patient's blood sugar was also elevated on admission and has remained elevated. PAST MEDICAL HISTORY: Diabetes mellitus, hepatitis C, cirrhosis, spinal stenosis, history of cholecystectomy, history of . ALLERGIES: CEPHALEXIN. MEDICATIONS: 1. Piperacillin/tazobactam. 2. Insulin 3. Senokot. 4. Tenormin. SOCIAL HISTORY: The patient lives with 2 sons. No tobacco use. No illicit drug use. No alcohol use. FAMILY HISTORY: Noncontributory. REVIEW OF SYSTEMS: Chronic head tremor. Urinary incontinence. Otherwise, negative on a 10-point review. PHYSICAL EXAMINATION: GENERAL: This is a slender, well-developed female who is in no acute distress. She is awake and alert. VITAL SIGNS: Temperature 98.4, BP 154/72, respirations 20, heart rate 86. HEENT: Head is atraumatic. Extraocular movements grossly intact. Pupils reactive to light. No icterus. No conjunctival erythema. Oropharynx, moist mucosa. No visible lesions. NECK: Supple without adenopathy. LUNGS: Decreased breath sounds bilaterally. HEART: Regular S1, S2. Slight systolic murmur at the left sternal border. ABDOMEN: Bowel sounds present. Soft, nontender. RECTAL: Not performed. GENITOURINARY: The patient has an external urinary catheter with slight turbid urine. EXTREMITIES: No clubbing or cyanosis or edema. SKIN: No rash. NEUROLOGIC: Nonfocal. PSYCHOLOGIC: The patient is calm and cooperative. LABORATORY DATA: WBC 11.2, platelets 117, hemoglobin 10.8, 75% neutrophils, 8% bands. Estimated GFR of 43. Creatinine 1.42, sodium 130. LFTs normal. IMPRESSION: 1. Gram-negative sepsis arising from urinary tract infection. 2. Urinary tract infection due to Escherichia coli. 3. Acute kidney disease. 4. Leukocytosis. 5. Diabetes mellitus. RECOMMENDATIONS: 1. Continue piperacillin/tazobactam. 2. Monitor blood culture and sensitivity of the gram-negative rods. 3. Monitor white count. 4. Monitor clinical status. Thank you for this consultation. The patient's progress will monitored and further recommendations will be given upon followup if necessary. MD ANDRES Nunez/dilcia , 01:04 PM , 01:15 PM
[2017-12-10] MEDS ORDERED: Lisinopril 20 MG Tablet PO ONE (17:45)
[2017-12-10] MEDS: Zolpidem Tartrate 5 MG Tablet PO PRN (21:21)
[2017-12-11] MEDS: Piperacil/Tazo 4.5 GM Premix 4.5 GM/100 ML BAG IV.SIG SCH ×2 (04:22→09:19)
[2017-12-11] MEDS: Senna/Docusate Sodium 8.6/50 MG Tablet PO SCH ×2 (09:18→22:01)
[2017-12-11] MEDS: Atenolol 25 MG Tablet PO SCH (09:18)
[2017-12-11] MEDS: Lisinopril 20 MG Tablet PO SCH (09:19)
[2017-12-11] MEDS: Insulin NovoLOG Aspart Correctional Sugar Inj SQ SCH ×4 (09:19→22:03)
[2017-12-11] MEDS: Insulin Detemir Inj 1,000 UNIT/10 ML Vial SQ SCH ×2 (09:20→22:03)
--- NOTE | 2017-12-11 13:26 | P.PNIM ---
Subjective Interval history: The patient said she was feeling better. She said she was concerned about her blood sugar. She wanted to know if she could be on omeprazole. She felt acid reflux. She also requested anxiety medication. No other acute concerns. Physical Exam Vital signs: Vital Signs 12/10/17 16:00 12/10/17 17:01 12/10/17 20:00 Temperature 100 F H 99.0 F Pulse Rate 88 90 Respiratory Rate 20 18 Blood Pressure 196/91 H 178/78 H 160/73 H Pulse Oximetry 95 96 12/11/17 00:00 12/11/17 00:34 12/11/17 04:00 Temperature 99.9 F H 97.9 F Pulse Rate 92 H 79 76 Respiratory Rate 18 18 Blood Pressure 134/64 157/81 H Pulse Oximetry 97 98 12/11/17 05:30 12/11/17 08:00 12/11/17 09:00 Temperature 98.8 F Pulse Rate 72 78 76 Respiratory Rate 17 Blood Pressure 164/74 H Pulse Oximetry 98 12/11/17 12:00 Temperature 97.9 F Pulse Rate 73 Respiratory Rate 17 Blood Pressure 127/65 Pulse Oximetry 100 Intake & Output 12/10/17 12/11/17 12/11/17 18:59 06:59 18:59 Intake Total 100 / 100 660 / 660 Output Total 1400 / 1400 Balance 99 / 99 -740 / -740 Intake: IV 100 / 100 660 / 660 Magnesium Sulfate Inj 2 GM In 100 / 100 NS Inj 96 ML @ 50 mls/hr IV.SIG ONCE ONE Rx#:[id number] Zosyn 4.5 GM Premix 4.5 gm In 100 / 100 300 / 300 100 ml @ 200 mls/hr IV.SIG Q6H [facility] Rx#:[id number] Sodium Phosphate Inj 30 MMOL In 260 / 260 NS Inj 250 ML @ 40 mls/hr IV. SIG ONCE ONE Rx#:[id number] Output: Urine 1400 / 1400 Stool Other: # Incontinent Voids 3 Date of Last Bowel Movement 12/10/17 12/10/17 12/11/17 # Bowel Movements 1 Narrative: GENERAL: Pleasant elderly female in no acute distress. SKIN: Focused skin assessment warm and dry. HEENT: PERRLA, EOMI. No scleral icterus or conjunctival pallor. No lid lag or facial droop. CARDIOVASCULAR: Tachycardic. No obvious murmurs to auscultation. No chest tenderness to palpation. RESPIRATORY: No obvious rhonchi or wheezing. Clear to auscultation. Breath sounds equal bilaterally. GASTROINTESTINAL: Abdomen soft, non-tender, nondistended. BS normal. MUSCULOSKELETAL: Extremities without clubbing, cyanosis, or edema. No obvious deformities. NEUROLOGICAL: Awake, alert and oriented x4. Resting tremor. Moving both upper and lower extremities spontaneously. PSYCHIATRIC: Appropriate mood and affect. Insight and judgment normal. - Urinary Catheter Management Female External Cath placed during this visit: no Results - Labs CBC & Chem 7: 12/10/17 04:42 12/10/17 04:42 Laboratory Results - last 24 hr 12/10/17 12/10/17 12/11/17 16:42 20:38 07:59 POC Glucose 371 H 312 H 243 H Microbiology 12/10/17 12:19 Blood - Peripheral Aerobic Blood Culture - Preliminary No growth in 1 day 12/10/17 12:19 Blood - Peripheral Anaerobic Blood Culture - Preliminary No growth in 1 day 12/10/17 12:24 Blood - Peripheral Aerobic Blood Culture - Preliminary No growth in 1 day 12/10/17 12:24 Blood - Peripheral Anaerobic Blood Culture - Preliminary No growth in 1 day 12/08/17 19:20 Blood - Peripheral Aerobic Blood Culture - Final Escherichia coli 12/08/17 19:20 Blood - Peripheral Anaerobic Blood Culture - Final Escherichia coli 12/08/17 19:25 Blood - Peripheral Aerobic Blood Culture - Final Escherichia coli 12/08/17 19:25 Blood - Peripheral Anaerobic Blood Culture - Final Escherichia coli 12/08/17 19:22 Clean Catch Urine Urine Culture - Final Escherichia coli Assessment and Plan - Assessment (1) Sepsis Code(s): A41.9 - Sepsis, unspecified organism Status: Acute (2) UTI (urinary tract infection) Code(s): N39.0 - Urinary tract infection, site not specified Status: Acute (3) DELFINO (acute kidney injury) Code(s): N17.9 - Acute kidney failure, unspecified Status: Acute (4) DM (diabetes mellitus) Code(s): E11.9 - Type 2 diabetes mellitus without complications Status: Acute (5) Hepatitis C Code(s): B19.20 - Unspecified viral hepatitis C without hepatic coma Status: Acute - Plan Sepsis Temp 102.5, HR 93, WBC 14, Source-UTI. Blood cultures positive for gram positive rods. Urine culture and blood cultures growing E. coli. -follow repeat blood cultures. NGTD. -Continue IV Zosyn per ID. DELFINO/ Hyponatremia Creatinine 1.66, previously 1.07 on 04/03. S/p IVFs. Sodium level improved. -avoid nephrotoxins. -IVFs. -pt requests no further labs. Outpt follow-up with PCP recommended. DM Uncontrolled, likely related to acute infection/sepsis. BS 397 on arrival. -sliding scale w/ Accu-Cheks. -on Lantus 60u qhs at home. Increase Levemir to 20 units twice daily and adjust as needed. Add aspart with meals. Regular insulin sc x 1 now. Hepatitis C H/o Hep C/ Cirrhosis, LFTs at baseline in comparison to labs from 04/03/08. Recently started on Harvoni. -outpt follow-up. -Continue home Harvoni. DVT Prophylaxis: SCD/Teds Discharge Planning: Home health once cleared by ID. (1) Sepsis Qualifiers: Sepsis type: sepsis due to unspecified organism Qualified Code(s): A41.9 - Sepsis, unspecified organism
--- NOTE | 2017-12-11 13:27 | P.DCO ---
- Physical Therapy Order: Evaluate and treat, Improve ambulation, Strength and gait training - Home Health Nursing Order: Medical education, Signs/symptoms of disease process, Diabetic education , Medication education-adverse effect, Nursing assessment with vital signs - Case Management Consult Yes - Certification I have seen patient Cherise Perez on 12/11/17. My clinical findings support the need for the requested home health care services because: Limited ability to care for self, Infection with risk of complications I certify that my clinical findings support that this patient is homebound because: Unsteady gait/balance, Unsafe to leave home unassisted
[2017-12-11] MEDS ORDERED: Sodium Chloride 0.9% 2 ML Flush PRN IV.FLUSH (13:56)
[2017-12-11] MEDS: Sod Chloride 0.9% Inj 1,000 ML IV.CONT SCH ×2 (14:05→23:35)
--- NOTE | 2017-12-11 15:37 | P.PNID ---
Subjective Remarks: Patient says that she has diarrhea. Notes pain at the left antecubital area where she has been stuck for IV labs. Afebrile. Denies chills. Repeat blood culture is negative. This is a 77-year-old black female who presented to the emergency department with fever and chills. The patient noted that she fell 4 times before she was brought to the emergency department. She also noted body aches. In the emergency department, her temperature was 102.5 degrees. White count was elevated at 14.1. She also has renal insufficiency and hyponatremia. Past Medical History: PAST MEDICAL HISTORY: Diabetes mellitus, hepatitis C, cirrhosis, spinal stenosis, history of cholecystectomy, history of . Allergies/Adverse Reactions: Allergies cephalexin Allergy (Severe, Verified 12/08/17 18:37) HIVES Objective Vital Signs 12/10/17 16:00 12/10/17 17:01 12/10/17 20:00 Temperature 100 F H 99.0 F Pulse Rate 88 90 Respiratory Rate 20 18 Blood Pressure 196/91 H 178/78 H 160/73 H Pulse Oximetry 95 96 12/11/17 00:00 12/11/17 00:34 12/11/17 04:00 Temperature 99.9 F H 97.9 F Pulse Rate 92 H 79 76 Respiratory Rate 18 18 Blood Pressure 134/64 157/81 H Pulse Oximetry 97 98 12/11/17 05:30 12/11/17 08:00 12/11/17 09:00 Temperature 98.8 F Pulse Rate 72 78 76 Respiratory Rate 17 Blood Pressure 164/74 H Pulse Oximetry 98 12/11/17 12:00 Temperature 97.9 F Pulse Rate 73 Respiratory Rate 17 Blood Pressure 127/65 Pulse Oximetry 100 Intake & Output 12/10/17 12/11/17 12/11/17 18:59 06:59 18:59 Intake Total 100 / 100 660 / 660 100 / 100 Output Total 1400 / 1400 Balance 99 / 99 -740 / -740 100 / 100 Intake: IV 100 / 100 660 / 660 100 / 100 Magnesium Sulfate Inj 2 GM In 100 / 100 NS Inj 96 ML @ 50 mls/hr IV.SIG ONCE ONE Rx#:[id number] Zosyn 4.5 GM Premix 4.5 gm In 100 / 100 300 / 300 100 / 100 100 ml @ 200 mls/hr IV.SIG Q6H PAIGE Rx#:[id number] Sodium Phosphate Inj 30 MMOL In 260 / 260 NS Inj 250 ML @ 40 mls/hr IV. SIG ONCE ONE Rx#:[id number] Output: Urine 1400 / 1400 Stool Other: # Incontinent Voids 3 Date of Last Bowel Movement 12/10/17 12/10/17 12/11/17 # Bowel Movements 1 12/10/17 12:19 Blood - Peripheral Aerobic Blood Culture - Preliminary No growth in 1 day 12/10/17 12:19 Blood - Peripheral Anaerobic Blood Culture - Preliminary No growth in 1 day 12/10/17 12:24 Blood - Peripheral Aerobic Blood Culture - Preliminary No growth in 1 day 12/10/17 12:24 Blood - Peripheral Anaerobic Blood Culture - Preliminary No growth in 1 day 12/08/17 19:20 Blood - Peripheral Aerobic Blood Culture - Final Escherichia coli 12/08/17 19:20 Blood - Peripheral Anaerobic Blood Culture - Final Escherichia coli 12/08/17 19:25 Blood - Peripheral Aerobic Blood Culture - Final Escherichia coli 12/08/17 19:25 Blood - Peripheral Anaerobic Blood Culture - Final Escherichia coli 12/08/17 19:22 Clean Catch Urine Urine Culture - Final Escherichia coli 12/08/17 19:24 Nasal Wash Influenza Types A,B Antigen - Final Negative for FLU A and B antigen Infection due to influenza A or B cannot be ruled out since the antigen present in the sample may be below the detection limit of the test. Lab - Hematology Results 12/10/17 04:42 WBC 11.2 H RBC 3.86 L Hgb 10.8 L Hct 33.4 L MCV 86.5 MCH 27.9 MCHC 32.3 RDW 12.9 Plt Count 117 L MPV 9.9 Prelim Diff (Auto) Manual diff required WBC Differential Manual diff final Seg Neuts % (Manual) 75 H Band Neuts % (Manual) 8 H Lymphocytes % (Manual) 7 L Monocytes % (Manual) 9 H Basophils % (Manual) 1 Abs Neuts (Manual) 9.3 H Differential Comment . Platelet Estimate Low L Platelet Morphology Enlarged H Lab - Chemistry Results 12/09/17 12/09/17 12/09/17 15:02 17:31 20:48 Sodium 129 L Potassium 4.5 Chloride 97 L Carbon Dioxide 22.9 Anion Gap 9 BUN 26 H Creatinine 1.47 H Estimated GFR 42 L POC Glucose 345 H 388 H Random Glucose 351 H Calcium 8.6 Phosphorus Magnesium Total Bilirubin Direct Bilirubin Indirect Bilirubin AST ALT Alkaline Phosphatase Total Protein Albumin 12/10/17 12/10/17 12/10/17 03:45 04:42 08:15 Sodium 130 L Potassium 4.0 Chloride 98 Carbon Dioxide 22.4 Anion Gap 10 BUN 26 H Creatinine 1.42 H Estimated GFR 43 L POC Glucose 325 H 308 H Random Glucose 321 H Calcium 8.6 Phosphorus 1.3 L Magnesium 1.4 L Total Bilirubin 1.0 Direct Bilirubin 0.6 H Indirect Bilirubin 0.4 AST 25 ALT 14 Alkaline Phosphatase 96 Total Protein 7.3 Albumin 2.4 L 12/10/17 12/10/17 12/10/17 12:21 16:42 20:38 Sodium Potassium Chloride Carbon Dioxide Anion Gap BUN Creatinine Estimated GFR POC Glucose 332 H 371 H 312 H Random Glucose Calcium Phosphorus Magnesium Total Bilirubin Direct Bilirubin Indirect Bilirubin AST ALT Alkaline Phosphatase Total Protein Albumin 12/11/17 12/11/17 07:59 12:51 Sodium Potassium Chloride Carbon Dioxide Anion Gap BUN Creatinine Estimated GFR POC Glucose 243 H 308 H Random Glucose Calcium Phosphorus Magnesium Total Bilirubin Direct Bilirubin Indirect Bilirubin AST ALT Alkaline Phosphatase Total Protein Albumin Imaging: ITS Impressions Chest X-Ray 12/08/17 18:16 CONCLUSION: No acute cardiopulmonary disease. Physical Exam: PHYSICAL EXAMINATION: GENERAL: Awake and alert. HEENT: Head is atraumatic. Extraocular movements grossly intact. Pupils reactive to light. No icterus. No conjunctival erythema. Oropharynx, moist mucosa. No visible lesions. NECK: Supple without adenopathy. LUNGS: Decreased breath sounds. HEART: Regular S1, S2. Slight systolic murmur at the left sternal border. ABDOMEN: Bowel sounds present. Soft, nontender. EXTREMITIES: No clubbing or cyanosis or edema. swelling at the left antecubital area. SKIN: No rash. NEUROLOGIC: Nonfocal. PSYCHOLOGIC: Calm and cooperative. Assessment and Plan - Plan IMPRESSION: 1. E. coli sepsis. 2. Urinary tract infection due to Escherichia coli. 3. Acute kidney disease. 4. Leukocytosis. 5. Diabetes mellitus. RECOMMENDATIONS: 1. Pic line and treat with IV Ertapenem until 12/18/2017. Patient allergic to Cephalexin. Avoid levaquin - C. dif risk. Patient having diarrhea. 2. May discharge tomorrow if IV outpatient is arranged.
--- NOTE | 2017-12-11 15:40 | P.DCO ---
Post Hospital Infusion Therapy Location of Infusion Therapy: Home Health Care IV Infusion Order Patient Weight: 84.3 kg - Diagnosis (1) Sepsis Code(s): A41.9 - Sepsis, unspecified organism - Administer Medication Ertapenem Dose: 1 gram IV Directions: q 24 hours Stop Treatment: 12/18/17 - Additional Information Venous Access: PICC Line Additional Instructions: [x] Peripheral flush and dressing changes per protocol [x] Implanted port and central can line examiner: * Implanted port: 10 ml Normal Saline followed by 5 ml Heparin 100 units/ml Heparin flush after each use and monthly to maintain. [] May leave port accessed during therapy. [] May leave peripheral site accessed for duration of therapy. [x] If patient has SOB or respiratory distress, check oxygen saturation. If less than 90% or clinical signs of respiratory distress, administer oxygen at 2 L/min. via nasal cannula and notify physician. [x] Anaphylaxis/Reaction orders: * Stop infusion. * Keep IV line open with saline flush. * Notify physician. * Monitor vital signs every 15 minutes until symptoms resolve. * Check Oxygen saturation; Oxygen at 2 L/min. via nasal cannula if less than 90% or clinical signs of respiratory distress. * Administer diphenhydramine (Benadryl) 25 mg IV STAT, (unless patient has received as pre-med). May repeat once, if necessary. * Solu-Cortef 250 mg IVP over 30-60 seconds, use 100 mg vials for each dissolution. * Epinephrine (1mg/1 ml) 0.3 mg subcutaneously or IVP now with any signs of respiratory distress. * Check with physician for new additional pre-med orders if patient is re- challenged or re-treated. [x] May remove PICC line when treatment complete, after confirming with Physician. [x] If the patient is admitted to the hospital, the ED, or transferred via [facility] , complete transfer form including medication reconciliation order sheet. Weekly Labs: BMP Allergies cephalexin Allergy (Severe, Verified 12/08/17 18:37) HIVES (1) Sepsis Qualifiers: Sepsis type: Escherichia coli Qualified Code(s): A41.51 - Sepsis due to Escherichia coli [E. coli]
[2017-12-11] MEDS: Piperacil/Tazo 3.375 GM Premix 50 ML IV.SIG SCH ×2 (17:28→21:59)
[2017-12-11] MEDS: ALPRAZolam 0.25 MG Tablet PO PRN (17:29)
[2017-12-11] MEDS: Sodium Chloride 0.9% 2 ML Flush BID IV.FLUSH SCH (22:01)
[2017-12-11] MEDS: Zolpidem Tartrate 5 MG Tablet PO PRN (22:07)
[2017-12-12] MEDS: Piperacil/Tazo 3.375 GM Premix 50 ML IV.SIG SCH ×4 (04:00→22:38)
[2017-12-12 07:04] LABS: Baso % (Auto) 0.4 % (0.0-2.0); Eos # (Auto) 0.1 th/mm3 (0.0-0.4); Eos % (Auto) 1.9 % (0.0-4.0); Hematocrit 32.6 % (35.0-46.0); Hemoglobin 10.7 gm/dL (11.6-15.3); Lymph # (Auto) 1.5 th/mm3 (1.0-4.8); Lymph % (Auto) 20.8 % (9.0-44.0); Mean Corpuscular HGB Conc 32.8 % (32.0-36.0); Mean Corpuscular Hemoglobin 27.8 pg (27.0-34.0); Mean Corpuscular Volume 84.9 fL (80.0-100.0); Mean Platelet Volume 8.9 fL (7.0-11.0); Mono # (Auto) 1.6 th/mm3 (0.0-0.9); Mono % (Auto) 21.3 % (0.0-8.0); Neut # (Auto) 4.1 th/mm3 (1.8-7.7); Neut % (Auto) 55.6 % (16.0-70.0); Platelet Count 152 th/mm3 (150-450); Red Blood Count 3.84 mil/mm3 (4.00-5.30); Red Cell Distribution Width 13.2 % (11.6-17.2); White Blood Count 7.4 th/mm3 (4.0-11.0)
[2017-12-12 07:31] LABS: Calcium 7.8 mg/dL (8.5-10.1); Carbon Dioxide 26.3 meq/L (21.0-32.0); Magnesium 1.6 mg/dL (1.5-2.5); Phosphorus 2.1 mg/dL (2.5-4.9); Potassium 3.6 meq/L (3.5-5.1)
[2017-12-12] MEDS: Acetaminophen 325 MG Tablet PO PRN ×2 (09:57→23:04)
[2017-12-12] MEDS: ALPRAZolam 0.25 MG Tablet PO PRN ×2 (09:58→22:52)
[2017-12-12] MEDS: Senna/Docusate Sodium 8.6/50 MG Tablet PO SCH ×2 (09:59→22:34)
[2017-12-12] MEDS: Insulin NovoLOG Aspart Correctional Sugar Inj SQ SCH ×4 (10:11→22:36)
[2017-12-12] MEDS: Insulin Detemir Inj 1,000 UNIT/10 ML Vial SQ SCH ×2 (10:11→22:37)
[2017-12-12] MEDS: Atenolol 25 MG Tablet PO SCH (10:12)
[2017-12-12] MEDS: Sodium Chloride 0.9% 2 ML Flush BID IV.FLUSH SCH ×2 (10:12→22:37)
[2017-12-12] MEDS: Lisinopril 20 MG Tablet PO SCH (10:12)
--- NOTE | 2017-12-12 15:37 | P.DCO ---
- Diagnosis (2) Sepsis - Physical Therapy Order: Evaluate and treat, Improve ambulation, Strength and gait training - Home Health Nursing Order: Medical education, Signs/symptoms of disease process, Medication education-adverse effect, Nursing assessment with vital signs, IV medication administration - Case Management Consult No - Certification I have seen patient Cherise Perez on 12/12/17. My clinical findings support the need for the requested home health care services because: Limited mobility due to disease progression, Deconditioned with increased weakness, Limited ability to care for self, Need for psychosocial assistance, High risk of falls, Infection with risk of complications I certify that my clinical findings support that this patient is homebound because: Unsteady gait/balance, Unsafe to leave home unassisted, Need for psychosocial assistance, Non-ambulatory: confined to bed or chair, Unable to use public transportation (2) Sepsis Qualifiers: Sepsis type: Escherichia coli Qualified Code(s): A41.51 - Sepsis due to Escherichia coli [E. coli]
--- NOTE | 2017-12-12 18:09 | P.PN ---
Subjective Interval history: Follow-up for UTI. Patient is currently doing well. Denies any chest pain, shortness of breath, fever or chills. Tolerating diet well. Wants to go home. Physical Exam Vital signs: Vital Signs 12/11/17 20:00 12/12/17 00:00 12/12/17 04:00 Temperature 99.8 F H 98.7 F 98.2 F Pulse Rate 81 75 73 Respiratory Rate 18 18 18 Blood Pressure 169/77 H 173/79 H 155/77 H Pulse Oximetry 97 95 98 12/12/17 08:00 12/12/17 12:00 12/12/17 16:00 Temperature 98.3 F 97.9 F 97.9 F Pulse Rate 73 72 62 Respiratory Rate 20 20 18 Blood Pressure 172/77 H 161/77 H 161/78 H Pulse Oximetry 97 97 98 Intake & Output 12/11/17 12/12/17 12/12/17 18:59 06:59 18:59 Intake Total 820 / 820 150 / 150 50 / 50 Output Total 100 / 100 500 / 500 Balance 720 / 720 -350 / -350 50 / 50 Weight 84.3 kg Intake: IV 100 / 100 150 / 150 50 / 50 Zosyn 3.375 GM Premix 50 ML @ 150 / 150 50 / 50 100 mls/hr IV.SIG Q6H PAIGE Rx#: [id number] Zosyn 4.5 GM Premix 4.5 gm In 100 / 100 100 ml @ 200 mls/hr IV.SIG Q6H PAIGE Rx#:[id number] Oral 720 / 720 Output: Urine 100 / 100 500 / 500 Other: # Voids 2 # Incontinent Voids 1 Date of Last Bowel Movement 12/11/17 12/11/17 # Bowel Movements 0 Narrative: GENERAL: Pleasant elderly female in no acute distress. SKIN: Focused skin assessment warm and dry. HEENT: PERRLA, EOMI. No scleral icterus or conjunctival pallor. No lid lag or facial droop. CARDIOVASCULAR: Tachycardic. No obvious murmurs to auscultation. No chest tenderness to palpation. RESPIRATORY: No obvious rhonchi or wheezing. Clear to auscultation. Breath sounds equal bilaterally. GASTROINTESTINAL: Abdomen soft, non-tender, nondistended. BS normal. MUSCULOSKELETAL: Extremities without clubbing, cyanosis, or edema. No obvious deformities. NEUROLOGICAL: Awake, alert and oriented x4. Resting tremor. Moving both upper and lower extremities spontaneously. PSYCHIATRIC: Appropriate mood and affect. Insight and judgment normal. - Urinary Catheter Management Female External Cath placed during this visit: no Results - Labs CBC & Chem 7: 12/12/17 06:16 12/12/17 06:16 Laboratory Results - last 24 hr 12/11/17 12/12/17 12/12/17 21:48 06:16 06:16 WBC 7.4 RBC 3.84 L Hgb 10.7 L Hct 32.6 L MCV 84.9 MCH 27.8 MCHC 32.8 RDW 13.2 Plt Count 152 MPV 8.9 Neut % (Auto) 55.6 Lymph % (Auto) 20.8 [place] % (Auto) 21.3 H Eos % (Auto) 1.9 Baso % (Auto) 0.4 Neut # (Auto) 4.1 Lymph # (Auto) 1.5 [place] # (Auto) 1.6 H Eos # (Auto) 0.1 Baso # (Auto) 0.0 WBC Differential . Differential Comment Auto diff final Sodium 137 Potassium 3.6 Chloride 103 Carbon Dioxide 26.3 Anion Gap 8 BUN 18 Creatinine 0.97 Estimated GFR 67 L POC Glucose 233 H Random Glucose 172 H Calcium 7.8 L Phosphorus 2.1 L Magnesium 1.6 12/12/17 09:57 WBC RBC Hgb Hct MCV MCH MCHC RDW Plt Count MPV Neut % (Auto) Lymph % (Auto) [place] % (Auto) Eos % (Auto) Baso % (Auto) Neut # (Auto) Lymph # (Auto) [place] # (Auto) Eos # (Auto) Baso # (Auto) WBC Differential Differential Comment Sodium Potassium Chloride Carbon Dioxide Anion Gap BUN Creatinine Estimated GFR POC Glucose 211 H Random Glucose Calcium Phosphorus Magnesium Microbiology 12/10/17 12:19 Blood - Peripheral Aerobic Blood Culture - Preliminary No growth in 2 days 12/10/17 12:19 Blood - Peripheral Anaerobic Blood Culture - Preliminary No growth in 2 days 12/10/17 12:24 Blood - Peripheral Aerobic Blood Culture - Preliminary No growth in 2 days 12/10/17 12:24 Blood - Peripheral Anaerobic Blood Culture - Preliminary No growth in 2 days Assessment and Plan - Assessment (1) Acute UTI Code(s): N39.0 - Urinary tract infection, site not specified Status: Acute (2) Sepsis Code(s): A41.9 - Sepsis, unspecified organism Status: Acute - Plan Sepsis Temp 102.5, HR 93, WBC 14, Source-UTI. Urine culture and blood cultures growing E. coli. -ID recommends Ertapenem until 12/18/2017. DELFINO/ Hyponatremia Creatinine 1.66, previously 1.07 on 04/03. S/p IVFs. Sodium level improved 124 -- > 137. -pt requests no further labs. Outpt follow-up with PCP recommended. DM Uncontrolled, likely related to acute infection/sepsis. BS 397 on arrival. -sliding scale w/ Accu-Cheks. -on Lantus 60u qhs at home. Increase Levemir to 25 units twice daily and adjust as needed. Add aspart with meals as well as corrective scale insulin. -Goal BG 140-180 in the hospital. Hepatitis C H/o Hep C/ Cirrhosis, LFTs at baseline in comparison to labs from 04/03/08. Recently started on Harvoni. -outpt follow-up. -Continue home Harvoni. DVT Prophylaxis: SCD/Teds Discharge plan: Probable discharge tomorrow 12/13/2017 once IV abx arranged by Case management. Sami was going to evaluate today. (2) Sepsis Qualifiers: Sepsis type: Escherichia coli Qualified Code(s): A41.51 - Sepsis due to Escherichia coli [E. coli]
[2017-12-13 02:57] VITALS: O2SAT 99
[2017-12-13] MEDS: Piperacil/Tazo 3.375 GM Premix 50 ML IV.SIG SCH ×2 (03:51→10:26)
[2017-12-13] MEDS: Senna/Docusate Sodium 8.6/50 MG Tablet PO SCH (09:22)
[2017-12-13] MEDS: Atenolol 25 MG Tablet PO SCH (09:22)
[2017-12-13] MEDS: Insulin Detemir Inj 1,000 UNIT/10 ML Vial SQ SCH (09:25)
[2017-12-13] MEDS: Lisinopril 20 MG Tablet PO SCH (09:25)
[2017-12-13] MEDS: Sodium Chloride 0.9% 2 ML Flush BID IV.FLUSH SCH (09:27)
[2017-12-13] MEDS: Insulin NovoLOG Aspart Correctional Sugar Inj SQ SCH ×2 (09:29→13:50)
--- NOTE | 2017-12-13 12:30 | P.PN ---
Subjective Interval history: Follow up sepsis December 13, 2017-seen and examined, no acute event overnight, afebrile, Physical Exam Vital signs: Vital Signs 12/12/17 16:00 12/12/17 20:00 12/13/17 00:00 Temperature 97.9 F 97.3 F L 97.6 F Pulse Rate 62 94 H 74 Respiratory Rate 18 18 18 Blood Pressure 161/78 H 170/81 H 166/77 H Pulse Oximetry 98 98 99 12/13/17 04:00 12/13/17 08:00 Temperature 97.3 F L Pulse Rate 76 76 Respiratory Rate 16 Blood Pressure 186/89 H Pulse Oximetry 99 Intake & Output 12/12/17 12/13/17 12/13/17 18:59 06:59 18:59 Intake Total 1180 / 1180 100 / 100 Output Total 400 / 400 Balance 780 / 780 100 / 100 Intake: IV 100 / 100 100 / 100 Zosyn 3.375 GM Premix 50 ML @ 100 / 100 100 / 100 100 mls/hr IV.SIG Q6H PAIGE Rx#: [id number] Oral 1080 / 1080 Output: Urine 400 / 400 Other: # Voids 3 5 Date of Last Bowel Movement 12/10/17 12/10/17 # Bowel Movements 1 Narrative: GENERAL: NAD SKIN: Warm and dry. HEAD: Normocephalic. EYES: No scleral icterus. No injection or drainage. NECK: Supple, trachea midline. No JVD or lymphadenopathy. CARDIOVASCULAR: Regular rate and rhythm without murmurs, gallops, or rubs. RESPIRATORY: Breath sounds equal bilaterally. No accessory muscle use. GASTROINTESTINAL: Abdomen soft, non-tender, nondistended. MUSCULOSKELETAL: No cyanosis, or edema. BACK: Nontender without obvious deformity. No CVA tenderness. - Urinary Catheter Management Female External Cath placed during this visit: no Results - Labs CBC & Chem 7: 12/12/17 06:16 12/12/17 06:16 Laboratory Results - last 24 hr 12/12/17 12/12/17 12/13/17 18:04 22:31 08:41 POC Glucose 305 H 271 H 116 H Microbiology 12/10/17 12:19 Blood - Peripheral Aerobic Blood Culture - Preliminary No growth in 3 days 12/10/17 12:19 Blood - Peripheral Anaerobic Blood Culture - Preliminary No growth in 3 days 12/10/17 12:24 Blood - Peripheral Aerobic Blood Culture - Preliminary No growth in 3 days 12/10/17 12:24 Blood - Peripheral Anaerobic Blood Culture - Preliminary No growth in 3 days - Procedures None Assessment and Plan - Assessment (1) Acute UTI Code(s): N39.0 - Urinary tract infection, site not specified Status: Acute (2) Sepsis Code(s): A41.9 - Sepsis, unspecified organism Status: Acute - Plan 77-year-old female with Sepsis - Resolved-Urine culture and blood cultures growing E. coli. -ID recommends Ertapenem until 12/18/2017. DELFINO/ Hyponatremia Creatinine 1.66, previously 1.07 on 04/03. S/p IVFs. Sodium level improved 124 -- > 137. -pt requests no further labs. Outpt follow-up with PCP recommended. DM -sliding scale w/ Accu-Cheks. -on Lantus 60u qhs at home. Levemir 25 units twice daily . Add aspart with meals as well as corrective scale insulin. Hepatitis C H/o Hep C/ Cirrhosis, LFTs at baseline in comparison to labs from 04/03/08. Recently started on Harvoni. -outpt follow-up. -Continue home Harvoni. DVT Prophylaxis: SCD/Teds (2) Sepsis Qualifiers: Sepsis type: Escherichia coli Qualified Code(s): A41.51 - Sepsis due to Escherichia coli [E. coli]
--- NOTE | 2017-12-13 12:35 | P.DS ---
Date of admission: 12/08/17 20:46 Primary care physician: Brenna Severino MD Anticipated date of discharge: 12/13/17 Brief History from admission: This is a 77-year-old female with a PMH of HTN, Hepatitis C, Cirrhosis and DM who presented to ER with complaints of fever and elevated BS x1 day. States she 's had non-productive cough, nasal congestion and sore throat since yesterday, last night w/ fever of 102. Denies chest pain, SOB or sick contacts. Notes BS have been 400s despite taking Insulin. On arrival, BP 131/62, HR 93, O2 sat 95 % on RA, Temp 102.5. WBC 14.1. Na 124. K+ 5.5. Creatinine 1.66, previously 1.07 on 04/03/2008. Lactic Acid 2.2. BS 397. UA positive for significant UTI. CXR with no acute findings. S/p Blood Cultures, IVF and Levaquin IV in ER DS: Diagnosis - Discharge Diagnosis (1) Acute UTI Status: Acute (2) Sepsis Status: Acute DS: Summary Hospital Course: While in hospital, patient was treated for: Sepsis - Resolved-Urine culture and blood cultures growing E. coli. -ID recommends Ertapenem until 12/18/2017. DELFINO/ Hyponatremia -Renal function improved and all electrolyte abnormalities were corrected accordingly. -Outpt follow-up with PCP recommended. DM -sliding scale w/ Accu-Cheks. -on Lantus 60u qhs at home. However patient was started on Levemir 25 units twice daily and aspart was added with meals as well as corrective scale insulin. Hepatitis C H/o Hep C/ Cirrhosis, LFTs at baseline in comparison to labs from 04/03/08. Recently started on Harvoni. -outpt follow-up. -Continue home Harvoni. DVT Prophylaxis: SCD/Teds - Time Spent with Patient Total time spent providing and/or coordinating discharge services: Greater than 30 minutes - Quality: VTE Deep Vein Thrombosis/Pulmonary Embolism Present on Admission: No Exam Vital signs: Vital Signs 12/12/17 16:00 12/12/17 20:00 12/13/17 00:00 Temperature 97.9 F 97.3 F L 97.6 F Pulse Rate 62 94 H 74 Respiratory Rate 18 18 18 Blood Pressure 161/78 H 170/81 H 166/77 H Pulse Oximetry 98 98 99 12/13/17 04:00 12/13/17 08:00 Temperature 97.3 F L Pulse Rate 76 76 Respiratory Rate 16 Blood Pressure 186/89 H Pulse Oximetry 99 Intake & Output 12/12/17 12/13/17 12/13/17 18:59 06:59 18:59 Intake Total 1180 / 1180 100 / 100 Output Total 400 / 400 Balance 780 / 780 100 / 100 Intake: IV 100 / 100 100 / 100 Zosyn 3.375 GM Premix 50 ML @ 100 / 100 100 / 100 100 mls/hr IV.SIG Q6H PAIGE Rx#: [id number] Oral 1080 / 1080 Output: Urine 400 / 400 Other: # Voids 3 5 Date of Last Bowel Movement 12/10/17 12/10/17 # Bowel Movements 1 Narrative: GENERAL: NAD SKIN: Warm and dry. HEAD: Normocephalic. EYES: No scleral icterus. No injection or drainage. NECK: Supple, trachea midline. No JVD or lymphadenopathy. CARDIOVASCULAR: Regular rate and rhythm without murmurs, gallops, or rubs. RESPIRATORY: Breath sounds equal bilaterally. No accessory muscle use. GASTROINTESTINAL: Abdomen soft, non-tender, nondistended. MUSCULOSKELETAL: No cyanosis, or edema. BACK: Nontender without obvious deformity. No CVA tenderness. Results Procedures completed during hospitalization: None Labs on day of discharge: Labs from last 24 hours 12/13/17 12/12/17 12/12/17 08:41 22:31 18:04 POC Glucose 116 H 271 H 305 H Preliminary micro results at discharge 12/10/17 12:19 Aerobic Blood Culture - Preliminary Blood - Peripheral No growth in 3 days Anaerobic Blood Culture - Preliminary No growth in 3 days 12/10/17 12:24 Aerobic Blood Culture - Preliminary Blood - Peripheral No growth in 3 days Anaerobic Blood Culture - Preliminary No growth in 3 days - Impressions ITS Impressions Chest X-Ray 12/08/17 18:16 CONCLUSION: No acute cardiopulmonary disease. Discharge Plan - Discharge Disposition Patient Disposition: W/Home Health Service - Discharge Condition Condition: Good - Discharge Order Discharge Orders: Discharge Order (Routine); Ordered 12/13/17 Ordered By: Juan Manuel Shepard - Physicians Team Primary Care Provider: Brenna Severino Attending Provider: Pontey,Juan Manuel B Other Providers: [employer] ; Justo Guillaume MD ; Sami Dupont,[employer]
[2017-12-13 13:43] VITALS: BP 187/84; PULSE 72; RESP 20; TEMP 97.9
== END 2017-12-13 15:02 | disposition home health service (06) ==
LOC: NEPC 17:33 → NEDA 20:46 → N05 22:23
PROVIDERS: ADMIT Hospitalist; ATTEND Hospitalist